=== PATIENT | male | born 1950 | race Caucasian/White ===

== ENCOUNTER 2018-04-23 10:18 | Emergency (ER) | payer OTHER ==
[2018-04-23 10:21] VITALS: BMI 28.0
[2018-04-23 10:26] VITALS: BP 145/90; PULSE 82; TEMP 98.3
[2018-04-23] MEDS ORDERED: AZITHROMYCIN 250 MG TABLET PO ONE (11:01)
--- NOTE | 2018-04-23 11:01 | PDOC ---
History of Present Illness - General Chief Complaint: Cold Symptoms Stated Complaint: CONGESTION Time Seen by Provider: 04/23/18 10:19 - History of Present Illness Initial Comments: 04/23/18 10:56 67 M with no known PMH presents to ED with cough and congestion x 2 weeks. Pt states that he initially felt like he was having a sinus infection with a lot of nasal congestion. This cleared up, but he stats the congestion migrated down into his chest. He reports coughing up yellowish sputum. Denies F/C. Denies SOB. Endorses some soreness in his chest with coughing. Denies leg swelling. Pt notes he is daily smoker. Pt comes to ED today requesting antibiotics. States that he does not want any imaging or bloodwork. Past History - Past Medical History Allergies/Adverse Reactions: Allergies Allergy/AdvReac Type Severity Reaction Status Date / Time No Known Allergies Allergy Verified 04/23/18 10:19 Home Medications: Ambulatory Orders Azithromycin 250 mg PO DAILY #4 tablet 04/23/18 Escitalopram Oxalate [Lexapro -] 20 mg PO DAILY 04/23/18 COPD: No - Suicide/Smoking/Psychosocial Hx Smoking History: Current every day smoker Have you smoked in the past 12 months: Yes Number of Cigarettes Smoked Daily: 20 Information on smoking cessation initiated: Yes Hx Alcohol Use: No Drug/Substance Use Hx: No Review of Systems - Review of Systems Comments:: 04/23/18 10:57 GENERAL/CONSTITUTIONAL: No fever or chills. No weakness. HEAD, EYES, EARS, NOSE AND THROAT: No change in vision. No ear pain or discharge. No sore throat. CARDIOVASCULAR: No chest pain, no shortness of breath, no loss of consciousness RESPIRATORY: + cough, no wheezing, or hemoptysis. GASTROINTESTINAL: No nausea, vomiting, diarrhea or constipation. GENITOURINARY: No dysuria, frequency, or change in urination. MUSCULOSKELETAL: No joint or muscle swelling or pain. No neck or back pain. SKIN: No rash NEUROLOGIC: No vertigo, no change in strength/sensation. ENDOCRINE: No increased thirst. No abnormal weight change. HEMATOLOGIC/LYMPHATIC: No anemia, easy bleeding, or history of blood clots. ALLERGIC/IMMUNOLOGIC: No hives or skin allergy. *Physical Exam - Vital Signs Last Vital Signs Temp Pulse Resp BP Pulse Ox 98.3 F 82 17 145/90 97 04/23/18 10:19 04/23/18 10:19 04/23/18 10:19 04/23/18 10:19 04/23/18 10:19 - Physical Exam Comments: 04/23/18 10:58 "GENERAL: Awake, alert, and fully oriented, in no acute distress. HEAD: No signs of trauma EYES: PERRLA, EOMI, sclera anicteric, conjunctiva clear ENT: Auricles normal inspection, hearing grossly normal, nares patent, oropharynx clear without exudates. Moist mucosa NECK: Nontender, no stepoffs, Normal ROM, supple, no lymphadenopathy, JVD, or masses LUNGS: Breath sounds equal, clear to auscultation bilaterally. No wheezes, and no crackles HEART: Regular rate and rhythm, normal S1 and S2, no murmurs, rubs or gallops ABDOMEN: Soft, nontender, normoactive bowel sounds. No guarding, no rebound. No masses EXTREMITIES: Normal range of motion, no edema. No clubbing or cyanosis. No cords, erythema, or tenderness NEUROLOGICAL: Cranial nerves II through XII intact. 5/5 strength and sensation in all extremities, Normal speech, normal gait, normal cerebellar function SKIN: Warm, Dry, normal turgor, no rashes or lesions noted. Moderate Sedation - Procedure Monitoring Vital Signs: Procedure Monitoring Vital Signs Temperature 98.3 F 04/23/18 10:19 Pulse Rate 82 04/23/18 10:19 Respiratory Rate 17 04/23/18 10:19 Blood Pressure 145/90 04/23/18 10:19 O2 Sat by Pulse Oximetry (%) 97 04/23/18 10:19 ED Treatment Course - RADIOLOGY Radiology Studies Ordered: Category Date Time Status CHEST PA & LAT [RAD] Stat Radiology 04/23/18 10:42 Ordered Medical Decision Making - Medical Decision Making 04/23/18 10:59 67 M with cough x 2 weeks. Lungs clear. Exam benign. Would recommend labs, EKG, and CXR given report of chest pain with cough. However, pt refusing all testing , only requesting antibiotics. Pt states that if he has to, he will see his doctor in [place], as [place]. The patient is clinically sober, free from distracting injury, appears to have intact insight and judgment and reason and in my opinion has the capacity to make decisions. The patient presented with chest pain. I have explained that I am concerned that this may represent ACS; they have verbalized an understanding of my concerns. I have discussed the need for bloodwork and EKG. I have told the patient that if they leave and have chest pain or shortness of breath, they could get much worse, could become critically ill, and could possibly become disabled or . I have discussed these concerns with the patients who is at the bedside and she is unable to convince them to stay for further evaluation. The patient is not willing to await bloodwork, EKG, or X ray. He is refusing any further care and is leaving against medical advice. I am unable to convince the patient to stay, I have asked them to return as soon as possible to complete their evaluation. I have answered all their questions. *DC/Admit/Observation/Transfer Diagnosis at time of Disposition: Cough - Discharge Dispostion Disposition: AGAINST MEDICAL ADVICE Condition at time of disposition: Stable - Referrals - Patient Instructions - Post Discharge Activity - Attestations Physician Attestion: 04/23/18 11:02 I, Dr. Lui Rasheed MD, attest that this document has been prepared under my direction and personally reviewed by me in its entirety. I further attest, that it accurately reflects all work, treatment, procedures and medical decision -making performed by me.
[2018-04-23] MEDS ORDERED: AZITHROMYCIN 500 MG TABLET ONE (11:04)
== END 2018-04-23 11:11 | disposition left against medical advice (07) ==
LOC: FER 10:18
DX: R05 Cough (principal)
CPT/HCPCS: 99281-25